=== PATIENT | female | born 1995 | race Caucasian/White ===

== ENCOUNTER 2018-07-23 07:59 | Inpatient (IN) | payer OTHER ==
[2018-07-23] MEDS ORDERED: BUTORPHANOL 1 MG INJ IV (09:30)
[2018-07-23] MEDS ORDERED: MISOPROSTOL 200 MCG TAB PR (09:30)
[2018-07-23] MEDS ORDERED: OXYTOCIN 30 UNITS/LR 500 ML IV (09:30)
[2018-07-23] MEDS ORDERED: CARBOPROST 250 MCG INJ IM (09:30)
[2018-07-23] MEDS ORDERED: METHYLERGONOVINE 0.2 MG INJ IM (09:30)
[2018-07-23] MEDS ORDERED: LIDOCAINE 1% (MPF) 30 ML INJ INJ (09:30)
[2018-07-23] MEDS: LACTATED RINGER'S 1,000 ML IV ×2 (09:57→19:15)
[2018-07-23 10:10] LABS: ADD MAN DIFF? NO
[2018-07-23 10:15] LABS: BASOPHILS % 0.1 % (0.0-2.0); EOSINOPHILS % 0.2 % (0.0-7.0); HEMATOCRIT 39.5 % (37.0-47.0); HEMOGLOBIN 13.5 g/dl (12.0-16.0); LYMPHOCYTES % 20.9 % (15.0-51.0); MEAN CORPUSCULAR HEMOGLOBIN 30.8 pg (29.0-33.0); MEAN CORPUSCULAR HGB CONC 34.2 g/dl (32.0-37.0); MEAN PLATELET VOLUME 9.8 fl (7.4-10.4); MONOCYTE # 0.6 10^3/ul (0.3-0.9); MONOCYTES % 6.3 % (0.0-11.0); NEUTROPHIL # 6.8 10^3/ul (1.6-7.5); NEUTROPHILS % 71.9 % (39.0-77.0); PLATELET COUNT 314 10^3/UL (140-415); RED BLOOD COUNT 4.39 10^6/ul (4.20-5.40); RED CELL DISTRIBUTION WIDTH 12.5 % (11.5-14.5)
[2018-07-23 10:15] LABS: WHITE BLOOD COUNT 9.4 10^3/ul (4.8-10.8)
[2018-07-23 10:34] LABS: INR 0.88; PT RATIO 0.9
[2018-07-23 10:35] LABS: PARTIAL THROMBOPLASTIN TIME 27.9 Sec (23.0-35.0)
[2018-07-23] MEDS: MISOPROSTOL 50 MCG CAPSULE PO ×4 (13:40→22:04)
[2018-07-23] MEDS: CLINDAMYCIN 900 MG/D5W (PMX) 50 ML IVPB ×2 (13:57→22:04)
[2018-07-23 15:03] LABS: RAPID PLASMA REAGIN NONREACTIVE (NR)
[2018-07-23 18:58] LABS: ALANINE AMINOTRANSFERASE 20 IU/L (13-69); ALBUMIN 3.4 g/dl (3.3-4.9); ALBUMIN/GLOBULIN RATIO 0.97; ALKALINE PHOSPHATASE 251 IU/L (42-121); ANION GAP 10 (5-13); ASPARTATE AMINO TRANSFERASE 16 IU/L (15-46); BLOOD UREA NITROGEN 8 mg/dl (7-20); CALCIUM 9.5 mg/dl (8.4-10.2); CARBON DIOXIDE 21 mmol/L (21-31); CHLORIDE 107 mmol/L (97-110); CREATININE 0.48 mg/dl (0.44-1.00); Estimated GFR > 60 mL/min (>60); GLUCOSE 94 mg/dl (70-220); POTASSIUM 4.2 mmol/L (3.5-5.1); SODIUM 138 mmol/L (135-144); TOTAL PROTEIN 6.9 g/dl (6.1-8.1); URIC ACID 6.5 mg/dl (3.1-7.9)
[2018-07-23 22:19] LABS: ADD UMIC NO; UR ASCORBIC ACID NEGATIVE (NEGATIVE); UR BACTERIA FEW /HPF (NONE SEEN); UR BILIRUBIN (Dip) NEGATIVE (NEGATIVE); UR BLOOD (Dip) NEGATIVE (NEGATIVE); UR CLARITY SLIGHTLY CLOUDY (CLEAR); UR COLOR YELLOW (YELLOW); UR GLUCOSE (Dip) NEGATIVE (NEGATIVE); UR KETONES (Dip) NEGATIVE (NEGATIVE); UR LEUKOCYTE ESTERASE (Dip) NEGATIVE Leu/ul (NEGATIVE); UR MUCUS MANY /HPF (NONE SEEN); UR NITRITE (Dip) NEGATIVE (NEGATIVE); UR RBC 1 /HPF (0-5); UR SPECIFIC GRAVITY (Dip) 1.026 (1.003-1.030); UR SQUAMOUS EPITHELIAL CELL FEW /HPF (FEW); UR TOTAL PROTEIN (Dip) NEGATIVE (NEGATIVE); UR UROBILINOGEN (Dip) NEGATIVE (NEGATIVE); UR WBC 7 /HPF (0-5)
[2018-07-24] MEDS: LACTATED RINGER'S 1,000 ML IV ×7 (02:25→23:54)
[2018-07-24] MEDS: MISOPROSTOL 50 MCG CAPSULE PO ×3 (02:31→10:31)
[2018-07-24] MEDS: CLINDAMYCIN 900 MG/D5W (PMX) 50 ML IVPB ×3 (06:30→22:26)
[2018-07-24] MEDS: BUTORPHANOL 2 MG INJ IV (06:34)
[2018-07-24] MEDS ORDERED: FENTAnyl 2MCG/ML-ROPIV 0.2% 100 ML (11:07)
[2018-07-24] MEDS ORDERED: NALOXONE (0.4 MG/ML) INJ IV (11:30)
[2018-07-24] MEDS ORDERED: DIPHENHYDRAMINE 50 MG INJ IV (11:30)
[2018-07-24] MEDS ORDERED: TRIMETHOBENZAMIDE 100 MG/ML VIAL IM (11:30)
[2018-07-24] MEDS ORDERED: ONDANSETRON 4 MG INJ IV (11:30)
[2018-07-24 12:27] LABS: HEPATITIS B SURFACE ANTIGEN NEGATIVE (NEGATIVE)
[2018-07-24] MEDS: OXYTOCIN 30 UNITS/LR 500 ML IV (14:32)
[2018-07-24] MEDS: FENTAnyl 2MCG/ML-ROPIV 0.2% 100 ML BAG EPI (18:47)
[2018-07-24 23:42] LABS: LACTIC ACID 1.5 mmol/L (0.5-2.0)
[2018-07-24] MEDS: GENTAMICIN 120 MG/NS (PMX) 100 ML IVPB (23:51)
[2018-07-25] MEDS: ACETAMINOPHEN 325 MG TAB PO (01:05)
[2018-07-25] MEDS: FENTAnyl 2MCG/ML-ROPIV 0.2% 100 ML BAG EPI (01:37)
[2018-07-25] MEDS: BUTORPHANOL 2 MG INJ IV (03:35)
[2018-07-25] MEDS: OXYTOCIN 30 UNITS/LR 500 ML IV ×2 (05:17→05:42)
[2018-07-25] MEDS ORDERED: MISOPROSTOL 200 MCG TAB PR (07:30)
[2018-07-25] MEDS ORDERED: OXYCODONE/ASPIRIN (4.88/325) TAB PO ×2 (07:30)
[2018-07-25] MEDS ORDERED: ZOLPIDEM 5 MG TAB PO (07:30)
[2018-07-25] MEDS ORDERED: METHYLERGONOVINE 0.2 MG INJ IM (07:30)
[2018-07-25] MEDS ORDERED: CARBOPROST 250 MCG INJ IM (07:30)
[2018-07-25] MEDS ORDERED: OXYTOCIN 30 UNITS/LR 500 ML IV (07:30)
[2018-07-25] MEDS: SENNA/DOCUSATE NA (8.6MG/50MG) TAB PO ×2 (09:00→21:38)
[2018-07-25] MEDS: WITCH HAZEL/GLYCERIN PAD PR (10:34)
[2018-07-25] MEDS: BENZOCAINE 20% 56 ML SPRAY TOP (10:34)
[2018-07-25] MEDS: LACTATED RINGER'S 1,000 ML IV (10:51)
[2018-07-25] MEDS: IBUPROFEN 600 MG TAB PO ×2 (11:47→17:23)
[2018-07-26] MEDS: IBUPROFEN 600 MG TAB PO ×5 (00:32→23:37)
[2018-07-26 08:43] LABS: ADD MAN DIFF? NO
[2018-07-26 08:53] LABS: WHITE BLOOD COUNT 16.4 10^3/ul (4.8-10.8)
[2018-07-26 08:53] LABS: BASOPHIL # 0.1 10^3/ul (0.0-0.1); BASOPHILS % 0.3 % (0.0-2.0); EOSINOPHILS # 0.1 10^3/ul (0.0-0.5); EOSINOPHILS % 0.3 % (0.0-7.0); HEMATOCRIT 32.4 % (37.0-47.0); HEMOGLOBIN 10.8 g/dl (12.0-16.0); LYMPHOCYTES # 3.1 10^3/ul (0.8-2.9); LYMPHOCYTES % 18.6 % (15.0-51.0); MEAN CORPUSCULAR HEMOGLOBIN 30.9 pg (29.0-33.0); MEAN CORPUSCULAR HGB CONC 33.3 g/dl (32.0-37.0); MEAN CORPUSCULAR VOLUME 92.8 fl (82.0-101.0); MEAN PLATELET VOLUME 10.4 fl (7.4-10.4); MONOCYTE # 1.1 10^3/ul (0.3-0.9); MONOCYTES % 6.5 % (0.0-11.0); NEUTROPHIL # 12.1 10^3/ul (1.6-7.5); NEUTROPHILS % 73.6 % (39.0-77.0); PLATELET COUNT 249 10^3/UL (140-415); RED BLOOD COUNT 3.49 10^6/ul (4.20-5.40); RED CELL DISTRIBUTION WIDTH 13.1 % (11.5-14.5)
[2018-07-26] MEDS: SENNA/DOCUSATE NA (8.6MG/50MG) TAB PO ×2 (09:30→21:38)
[2018-07-26] MEDS: LANOLIN HPA 1 PKT TOP (16:17)
[2018-07-27] MEDS: IBUPROFEN 600 MG TAB PO ×2 (05:53→11:31)
[2018-07-27] MEDS: DIPHTH/TET/ACEL PERTUSS (ADULT) 0.5 ML VIAL IM* (07:46)
[2018-07-27] MEDS: SENNA/DOCUSATE NA (8.6MG/50MG) TAB PO (09:51)
== END 2018-07-27 11:55 | disposition home or self-care (01) | DRG 807 ==
LOC: L-D 07-24 02:17 → PP1 07-25 16:05 → L-D 07:59
PROVIDERS: Specialist
PROC: 3E033VJ Introduction of Other Hormone into Peripheral Vein, Percutaneous Approach (ICD-10-PCS; 2018-07-23 08:00)
DX: O76 Abnormality in fetal heart rate and rhythm complicating labor and delivery (principal); O92.02 Retracted nipple associated with the puerperium; Z37.0 Single live birth; Z3A.40 40 weeks gestation of pregnancy
CPT/HCPCS: 62319; 76815; 80053; 81001; 81003; 83605; 84560; 85025; 85610; 85730; 86592; 86850; 86900; 86901; 87040; 87340; 99464